=== PATIENT | male | born 1995 | race Caucasian/White ===

== ENCOUNTER 2017-09-28 01:09 | Emergency (ER) | payer OTHER ==
[~2017-09-28 01:09] MED LIST: PROM6.2518 PO; Z.0.NO CURRENT MEDS
[2017-09-28 01:10] VITALS: BP 130/87; PULSE 109; RESP 16; TEMP 98; O2SAT 97
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
== END 2017-09-28 02:08 | disposition home or self-care (01) ==
LOC: NEPD 01:09
DX: Z04.1 Encounter for examination and observation following transport accident (principal)
CPT/HCPCS: 99282